=== PATIENT | female | born 1945 | race Caucasian/White ===

== ENCOUNTER 2017-06-23 12:35 | Day surgery (SDC) | payer MEDICARE ==
[~2017-06-23 12:35] MED LIST: Lactated Ringers 1,000 ML IV SCH; Sodium Chloride 0.9% 10 ML Syringe FLUSH PRN
[2017-06-23] MEDS ORDERED: Propofol 200 MG/20 ML SDV ONE ×3 (13:18→13:26)
--- NOTE | 2017-06-23 13:28 | PCM.PN ---
- General Info Date of Service: 06/23/17 - Review of Systems Systems Review Comment:: 71-year-old female referred for evaluation of abdominal pain she has never had previous colonoscopy. She describes her pain as being the epigastrium and she has noticed a little bit of relief with recent Prilosec use she is unclear whether she has acid reflux or not. I have discussed the proposed upper and lower endoscopy with the patient. Reviewed with her indications options and risks such as but not limited to bleeding and GI injury. Although she was initially scheduled for colonoscopy her symptoms suggest that she would benefit from upper endoscopy and she agrees to this as well today. - Patient Data Vitals - Most Recent: Last Vital Signs Temp 97.7 F 06/23/17 12:57 Pulse 107 H 06/23/17 12:57 Resp 18 06/23/17 12:57 BP 130/59 L 06/23/17 12:57 Pulse Ox 100 06/23/17 12:57 Weight - Most Recent: 53.524 kg Med Orders - Current: Current Medications Lactated Ringer's (Ringers, Lactated) 1,000 mls @ 125 mls/hr IV ASDIRECTED KLEBER Last Admin: 06/23/17 13:07 Dose: 125 mls/hr Sodium Chloride (Saline Flush) 10 ml FLUSH ASDIRECTED PRN PRN Reason: Keep Vein Open Discontinued Medications Propofol (Diprivan 20 Ml) Confirm Administered Dose 400 mg .ROUTE .STK-MED ONE Stop: 06/23/17 13:19 - Problem List Review Problem List Initiated/Reviewed/Updated: Yes - Assessment Assessment:: Epigastric pain Colon cancer screening - Plan Plan:: EGD and colonoscopy
--- NOTE | 2017-06-23 14:16 | PCM.OPNOTE ---
- General Post-Op/Procedure Note Date of Surgery/Procedure: 06/23/17 Operative Procedure(s): EGD with biopsy. Colonoscopy with polyp removal Findings: Moderate sized hiatal hernia Gastritis and duodenitis Colon polyps Internal hemorrhoids Pre Op Diagnosis: Epigastric pain. Colon cancer screening Post-Op Diagnosis: Hiatal hernia. Gastritis and duodenitis. Hemorrhoids. Colon polyp Anesthesia Technique: MAC Primary Surgeon: Shahab Orantes Pathology: Biopsies of gastric antrum and GE junction Colon polyps EBL in mLs: 4 Complications: None Condition: Good Free Text/Narrative:: Intake & Output 06/22/17 06/23/17 06/23/17 22:59 06:59 14:59 Intake Total 800 Balance 800
--- NOTE | 2017-06-24 08:37 | OR ---
Date of Procedure: 06/23/2017 PREOPERATIVE DIAGNOSIS: Epigastric pain, colon cancer screening. POSTOPERATIVE DIAGNOSES: Hiatal hernia, gastritis, duodenitis, hemorrhoids, and colon polyp. OPERATION PERFORMED: Esophagogastroduodenoscopy with biopsy and colonoscopy with polyp removal. INDICATIONS FOR SURGERY: A 71-year-old female who has been having recent onset of epigastric pain, etiology of which is unclear. She has never had a previous screening colonoscopy. FINDINGS: On upper endoscopy, the patient has a moderate-sized hiatal hernia, estimated at 4 cm in length. It does not appear to be acutely inflamed. The esophagus otherwise appears normal. The patient does have a mild degree of inflammation, seen in the gastric antrum with some edema of the mucosa and slight hyperemia. There is more pronounced inflammation noted in the duodenum, near the 1st and 2nd portions with hyperemia of the mucosa and some thickened folds. No definite ulcer was seen. On colonoscopy, the patient had a cluster of polyps in the sigmoid colon region at approximately the 15 cm level. These estimated at 2 to 3 mm in size. The remainder of the colon appeared normal. The patient does have a large amount of internal hemorrhoids, although no active bleeding was seen. DESCRIPTION OF PROCEDURE: The patient was taken to the operating room. She was given intravenous sedation, and her throat was topically anesthetized. The esophagus was intubated with the Olympus gastroscope, it was carefully advanced under direct visualization through the esophagus, stomach, and into the duodenum, where examination to the 3rd portion was performed. Carefully, the duodenum was examined and the scope was withdrawn back into the stomach where full examination including retroflexed examination of the fundus was performed. Biopsies of the antrum were taken to rule out H. pylori. The fundus and GE junction are carefully examined and biopsies were taken at the Z-line. The scope was then withdrawn and attention was turned to colonoscopy. Digital rectal exam showed no rectal masses. The Olympus colonoscope was inserted into the rectum. Retroflexed examination of the rectal canal was performed. The scope was then carefully advanced under direct visualization through the entire length of the colon until the cecum was reached. The colon was somewhat tortuous and advancing the scope was moderately difficult, but eventually the cecum was able to be safely cannulated. Full examination of the cecum was performed. The light was noted to transilluminate the abdominal wall in the right lower quadrant and the ileocecal valve and appendiceal orifice were viewed. After examining the cecum, the scope was slowly withdrawn sequentially re-examining the colonic segments. In the distal sigmoid colon, near the 15 cm level, there was a cluster of small polyps and these were removed with the biopsy forceps. The examination was completed, the scope was removed, and the patient was taken from the operating room in satisfactory condition. ESTIMATED BLOOD LOSS: 4 mL. COMPLICATIONS: None. PROGNOSIS: Good. MADDIE Orantes MD /[id number] MTDD
== END 2017-06-23 15:16 | disposition home or self-care (01) ==
LOC: LL.SDS 12:35
PROVIDERS: ATTEND Surgery
DX: Z12.11 Encounter for screening for malignant neoplasm of colon (principal); K63.5 Polyp of colon; K29.50 Unspecified chronic gastritis without bleeding; K44.9 Diaphragmatic hernia without obstruction or gangrene; K29.80 Duodenitis without bleeding; K64.8 Other hemorrhoids; F17.210 Nicotine dependence, cigarettes, uncomplicated
CPT/HCPCS: 00731; 00811; J2704; J7120